=== PATIENT | female | born 1960 | race Caucasian/White ===

== ENCOUNTER → 2016-06-01 | Outpatient (REF) | payer OTHER ==
[2016-06-01 12:07] LABS: ALBUMIN 3.8 GM/DL (3.2-5.2); ALBUMIN/GLOBULIN RATIO 1.41 (1.00-1.93); ALKALINE PHOSPHATASE 73 U/L (45-117); ALT/SGPT 48 U/L (12-78); ANION GAP 9 MEQ/L (8-16); AST/SGOT 27 U/L (15-37); BILIRUBIN,TOTAL 0.6 MG/DL (0.2-1.0); BLOOD UREA NITROGEN 17 MG/DL (7-18); CALCIUM LEVEL 8.7 MG/DL (8.5-10.1); CARBON DIOXIDE LEVEL 30 MEQ/L (21-32); CHLORIDE LEVEL 105 MEQ/L (98-107); CHOLESTEROL LEVEL 199 MG/DL (<200); CREATININE FOR GFR 0.72 MG/DL (0.55-1.02); GLOMERULAR FILTRATION RATE > 60.0 (>51); GLUCOSE, FASTING 95 MG/DL (70-105); POTASSIUM SERUM 3.9 MEQ/L (3.5-5.1); SODIUM LEVEL 144 MEQ/L (136-145); TOTAL PROTEIN 6.5 GM/DL (6.4-8.2); TRIGLYCERIDES LEVEL 75 MG/DL (<150)
== END ==
LOC: M SFHCCLAY 07:01
PROVIDERS: ATTEND Family Medicine
DX: E78.2 Mixed hyperlipidemia (principal)

== ENCOUNTER → 2016-06-27 | Day surgery (SDC) | payer OTHER ==
[~2016-06-27] VITALS: Ht 162.6 cm; Wt 67.1 kg
[~2016-06-27] MED LIST: ASTA1CAP PO; BACITRACIN PWD 50,000 UNITS VIAL As Ordered ONE; BACITRACIN PWD 50,000 UNITS VIAL IR ONE; BUPIVACAINE HCL 0.5% 30 ML VIAL As Ordered ONE; BUPIVACAINE HCL 0.5% 30 ML VIAL SC ONE; CALC600T7 PO; FEROCAP3 PO; HYDROmorphone HCL 1 MG/ML SYRINGE (J1170) IV PRN; LIDOCAINE 2% INJ 100 MG/5 ML SDV (FOR ANES.) As Ordered ONE; LIDOCAINE 2% MDV 20 ML VIAL As Ordered ONE; LIDOCAINE 2% MDV 20 ML VIAL SC ONE; LR 1,000 ML IV SCH; MIDAZOLAM INJ 2 MG/2 ML VIAL (J2250) As Ordered ONE; MULT1TAB15 PO; NEOSPORIN GU IRRIG 20 ML VIAL As Ordered ONE; NEOSPORIN GU IRRIG 20 ML VIAL IR ONE; ONDANSETRON 4MG/2ML VIAL (J2405) IV PRN; PERCOCET 5MG/325MG TAB PO PRN; PROPOFOL 200 MG/20 ML VIAL As Ordered ONE; VITA250L PO; [UNRECOGNIZED DRUG - OTHER] OR; ceFAZolin SOD 1 GM in D5W MINI-BAG PLUS 50 ML IV ONE; dexameTHASONE 4 MG/ML 1ML VIAL (J1100) As Ordered ONE; dexameTHASONE 4 MG/ML 1ML VIAL (J1100) XX ONE; fentaNYL 100 MCG/2 ML INJECTION (J3010) As Ordered ONE; fentaNYL 100 MCG/2 ML INJECTION (J3010) IV PRN
[2016-06-27 10:05] VITALS: BP 120/78
--- NOTE | 2016-06-27 10:19 | REP ---
Right foot series, three views: 06/27/2016. Clinical history: Postoperative first MTP fusion. Three views show multiple screws and a dorsal plate fixation for fusion of the first MTP joint. There are some degenerative changes at IP joints. Plantar and Achilles insertional spurs noted. Signed by Gaurav Mcgregor MD 06/27/2016 10:49 A
--- NOTE | 2016-06-27 14:02 | RO ---
DATE OF PROCEDURE: 06/27/2016 PREPROCEDURE DIAGNOSIS: Hallux limitus deformity right foot. POSTPROCEDURE DIAGNOSIS: Hallux limitus deformity right foot. PROCEDURE: Fusion first metatarsal phalangeal joint right foot. SURGEON: Matheus Etienne DPM NET C DEVELOPER: None. ANESTHESIA: Local, monitored anesthesia care (MAC). IRRIGATION: Dilute bacitracin, neomycin and polymyxin B solution. HEMOSTASIS: Ankle tourniquet at 225 mmHg for 71 minutes. HARDWARE UTILIZED: Rao Ortholoc MTP right sided 5 degrees angle plate with non-locking screws 3.5 x 16 and 18 and 20, and non-locking screws 2.7 x 18, 12 and 14, and a Dart-Fire 3.5 x 28 mm. DESCRIPTION OF PROCEDURE: On 06/27/2016, this 55-year-old white female was taken from her hospital room to the operating room and placed on the operating room table in a supine position. Following the induction of IV sedation, local and regional anesthesia, the right lower extremity was prepped and draped in the usual aseptic manner. The right lower extremity was elevated 45 degrees in a horizontal plane for the purpose of preoperative exsanguination of the limb. During this three minute time period, an ankle pneumatic tourniquet was applied just proximal to the medial and lateral malleolus over a well padded site. To further exsanguinate the limb, a Nick's Esmarch bandage was placed circumferentially extending from the digits to the distal edge of the ankle pneumatic tourniquet and the ankle pneumatic tourniquet was rapidly inflated to 225 mmHg for the purpose of intraoperative hemostasis. The Nick's Esmarch bandage was removed and the right lower extremity was returned to the operating table and sterile draping was completed and the following procedure was performed. FUSION FIRST METATARSAL PHALANGEAL JOINT RIGHT FOOT: Attention was directed to the patients right foot where a 7 cm incision was placed over the first metatarsal phalangeal joint medial to the extensor tendon. The incision was deepened through subcutaneous tissues and all coursing venous tributaries were identified, underscored, clamped, cut, ligated, and electrocoagulated as necessary. Spurring was noted over the dorsal aspect of the first metatarsal. The joint was opened and almost complete erosion of the articular cartilage was noted on the first metatarsal. Therefore, a fusion ws necessary. Utilizing a sagittal saw, an osteotomy was performed through the medial eminence and dorsal spur of the first metatarsal. The irregular surfaces of the first metatarsal phalangeal joint were also rongeured to a smooth fashion. Utilizing a cone shaped reamer, the first metatarsal and proximal phalanx were reamed to the subchondral plate and utilizing a 2 mm drill bit the joint was fenestrated. The wound was flushed with copious amounts of dilute bacitracin, neomycin and polymyxin B solution. Stab incision was made over the medial aspect of the hallux and a K-wire was then placed across the first metatarsal phalangeal joint and placed in several degrees of dorsiflexion and the toe held in an anatomic valgus position. C-arm imagery was utilized to verify placement and a 3.5 mm x 24 mm compression screw was placed across the first metatarsal phalangeal joint. A right sided MTP 5 degree angled plate was then held to the joint surfaces. This revealed good contour and the plate was then fixated in the standard fashion with first 2.7 mm screws across the proximal phalanx and this was utilizing the lag screw and the proximal aspect of the plate was lagged with a 3.5 non-locking screw. The additional 3.5 screws were then placed into the plate in a non-locking fashion. This provided a stable construct. Intraoperative C-arm imagery revealed good overall position and alignment of the hallux. The wound was flushed with copious amounts of dilute bacitracin, neomycin and polymyxin B solution. Attention was directed toward closure where the capsular structures were coapted and maintained utilizing #3-0 Vicryl in a simple interrupted type fashion. Subcutaneous tissues were coapted and maintained utilizing #4-0 Prolene in a simple interrupted type fashion. The skin incision was coapted and maintained utilizing #4-0 Prolene in a simple interrupted and horizontal mattress type fashion. Attention was directed towards bandaging where a sterile compressive bandage was applied consisting of Adaptic, 4x4s, 4x4 splints, Tonie, Kerlix and Coban. The ankle pneumatic tourniquet was rapidly deflated and instantaneous capillary filling time was noted in digits 1-5 of the patients right foot. The patient having apparently tolerated the surgical procedure well was taken from the OR to the recovery room with vital signs stable and the patient afebrile for further monitoring by the anesthesia department. All surgical specimens removed during the operative procedure were sent to pathology for gross and microscopic examination. Postoperative instructions will be given upon discharge.
== END | disposition home or self-care (01) ==
LOC: M SDC 06:02
PROVIDERS: ATTEND Podiatrist
DX: M20.5X1 Other deformities of toe(s) (acquired), right foot (principal); M20.22 Hallux rigidus, left foot; M20.21 Hallux rigidus, right foot; M72.2 Plantar fascial fibromatosis; G47.33 Obstructive sleep apnea (adult) (pediatric); G43.909 Migraine, unspecified, not intractable, without status migrainosus; T88.59XD Other complications of anesthesia, subsequent encounter; K21.9 Gastro-esophageal reflux disease without esophagitis; G89.29 Other chronic pain; M12.9 Arthropathy, unspecified; F32.9 Major depressive disorder, single episode, unspecified; F41.9 Anxiety disorder, unspecified; Z98.51 Tubal ligation status; Z98.84 Bariatric surgery status; Z88.1 Allergy status to other antibiotic agents; Z79.899 Other long term (current) drug therapy
CPT/HCPCS: 28750; 73630; 88300; C1776; J0690; J1100; J2250; J3010

== ENCOUNTER → 2017-01-16 | Outpatient (REF) | payer OTHER ==
[~2017-01-16] MED LIST changes: -ASTA1CAP PO; +ASTA4CAP PO; -BACITRACIN PWD 50,000 UNITS VIAL As Ordered ONE; -BACITRACIN PWD 50,000 UNITS VIAL IR ONE; -BUPIVACAINE HCL 0.5% 30 ML VIAL As Ordered ONE; -BUPIVACAINE HCL 0.5% 30 ML VIAL SC ONE; -HYDROmorphone HCL 1 MG/ML SYRINGE (J1170) IV PRN; -LIDOCAINE 2% INJ 100 MG/5 ML SDV (FOR ANES.) As Ordered ONE; -LIDOCAINE 2% MDV 20 ML VIAL As Ordered ONE; -LIDOCAINE 2% MDV 20 ML VIAL SC ONE; -LR 1,000 ML IV SCH; -MIDAZOLAM INJ 2 MG/2 ML VIAL (J2250) As Ordered ONE; -NEOSPORIN GU IRRIG 20 ML VIAL As Ordered ONE; -NEOSPORIN GU IRRIG 20 ML VIAL IR ONE; -ONDANSETRON 4MG/2ML VIAL (J2405) IV PRN; -PERCOCET 5MG/325MG TAB PO PRN; -PROPOFOL 200 MG/20 ML VIAL As Ordered ONE; -ceFAZolin SOD 1 GM in D5W MINI-BAG PLUS 50 ML IV ONE; -dexameTHASONE 4 MG/ML 1ML VIAL (J1100) As Ordered ONE; -dexameTHASONE 4 MG/ML 1ML VIAL (J1100) XX ONE; -fentaNYL 100 MCG/2 ML INJECTION (J3010) As Ordered ONE; -fentaNYL 100 MCG/2 ML INJECTION (J3010) IV PRN
== END ==
LOC: M SFHCCLAY 14:23
PROVIDERS: ATTEND Family Medicine
DX: R30.0 Dysuria (principal)

== ENCOUNTER → 2017-08-02 | Outpatient (CLI) | payer OTHER | LOC: M CLY 09:22 | DX: M79.671 Pain in right foot (principal) ==

== ENCOUNTER → 2018-07-23 | Outpatient (REF) | payer OTHER | LOC: M SFHCCLAY 11:37 | PROVIDERS: ATTEND Family Medicine | DX: Z12.4 Encounter for screening for malignant neoplasm of cervix (principal); N77.1 Vaginitis, vulvitis and vulvovaginitis in diseases classified elsewhere ==

== ENCOUNTER → 2018-09-01 | Outpatient (REF) | payer OTHER | LOC: M LAB REF 15:16 | PROVIDERS: ATTEND Nurse Practitioner Family | DX: L08.9 Local infection of the skin and subcutaneous tissue, unspecified (principal) ==

== ENCOUNTER 2018-09-26 09:16 | Day surgery (SDC) | payer OTHER ==
[~2018-09-26] VITALS: Ht 162.6 cm; Wt 80.3 kg
[~2018-09-26 09:16] MED LIST changes: +MAGN250T7 PO; +MAXA10TA14 PO; +MULTCAP PO; +NS 1,000 ML IV ONE; +SERT-141 PO; +VITA-157 PO; +VITA400T15 PO
[2018-09-26] MEDS ORDERED: LIDOCAINE 2% INJ 100 MG/5 ML SDV (FOR ANES.) As Ordered ONE (11:23)
[2018-09-26] MEDS ORDERED: PROPOFOL 200 MG/20 ML VIAL As Ordered ONE (11:23)
--- NOTE | 2018-09-26 11:34 | ROOR ---
Patient Name: Darline Rader Procedure Date: 09/26/2018 11:08 AM Date of : 1960 Age: 58 Room: [facility] Gender: Female Note Status: Finalized Procedure: Total Colonoscopy to Cecum Indications: High risk colon cancer surveillance: Personal history of colonic polyps, Last colonoscopy: 2011 Providers: Luciano Santa MD Referring MD: Vu Thomas MD Requesting Provider: Medicines: Monitored Anesthesia Care Complications: No immediate complications. Procedure: Pre-Anesthesia Assessment: - The heart rate, respiratory rate, oxygen saturations, blood pressure, adequacy of pulmonary ventilation, and response to care were monitored throughout the procedure. The Colonoscope was introduced through the anus and advanced to the cecum, identified by appendiceal orifice and ileocecal valve. The colonoscopy was performed without difficulty. The patient tolerated the procedure well. The quality of the bowel preparation was excellent. Findings: The perianal and digital rectal examinations were normal. Non-bleeding internal hemorrhoids were found during retroflexion. The hemorrhoids were small and Grade I (internal hemorrhoids that do not prolapse). Scattered small-mouthed diverticula were found in the recto-sigmoid colon, sigmoid colon and descending colon. The exam was otherwise without abnormality on direct and retroflexion views. Impression: - Non-bleeding internal hemorrhoids. - Diverticulosis in the recto-sigmoid colon, in the sigmoid colon and in the descending colon. - The examination was otherwise normal on direct and retroflexion views. - No specimens collected. - The exam was otherwise normal to the cecum. Recommendation: - Patient has a contact number available for emergencies. The signs and symptoms of potential delayed complications were discussed with the patient. Return to normal activities tomorrow. Written discharge instructions were provided to the patient. - High fiber diet. - Discharge patient to home. - Continue present medications. - Repeat colonoscopy in 5 years for surveillance. - Return to referring physician. - The findings and recommendations were discussed with the patient's family. Luciano Santa MD Luciano Santa MD 09/26/2018 11:34:25 AM Electronically signed by Luciano Santa MD Number of Addenda: 0 Note Initiated On: 09/26/2018 11:08 AM Estimated Blood Loss: Estimated blood loss: none.
[2018-09-26 11:50] VITALS: BP 124/82
== END 2018-09-26 12:04 | disposition home or self-care (01) ==
LOC: M OPP 09:16
PROVIDERS: ATTEND Internal Medicine Gastroenterology
DX: K64.0 First degree hemorrhoids (principal); K57.30 Diverticulosis of large intestine without perforation or abscess without bleeding; Z86.010 Personal history of colon polyps

== ENCOUNTER → 2018-11-19 | Outpatient (REF) | payer OTHER ==
[~2018-11-19] MED LIST changes: -NS 1,000 ML IV ONE
== END ==
LOC: M SFHCCLAY 07:10
PROVIDERS: ATTEND Nurse Practitioner Family
DX: J02.9 Acute pharyngitis, unspecified (principal)

== ENCOUNTER → 2019-09-29 | Outpatient (REF) | payer OTHER | LOC: M LAB REF 18:18 | PROVIDERS: ATTEND Dermatology | DX: C44.311 Basal cell carcinoma of skin of nose (principal); L72.0 Epidermal cyst ==

== ENCOUNTER → 2019-10-29 | Outpatient (REF) | payer OTHER | LOC: M LAB REF 10:29 | PROVIDERS: ATTEND Dermatology | DX: C44.301 Unspecified malignant neoplasm of skin of nose (principal) ==

== ENCOUNTER → 2019-11-16 | Outpatient (REF) | payer OTHER | LOC: M SFHCCLAY 10:03 | PROVIDERS: ATTEND Physician Assistant | DX: R30.0 Dysuria (principal) ==

== ENCOUNTER → 2020-02-02 | Outpatient (REF) | payer OTHER ==
[~2020-02-02] MED LIST changes: +CALC-212 PO; -CALC600T7 PO
== END ==
LOC: M LAB REF 10:00
PROVIDERS: ATTEND Dermatology
DX: B35.9 Dermatophytosis, unspecified (principal)

== ENCOUNTER → 2021-05-16 | Outpatient (REF) | payer OTHER ==
[~2021-05-16] MED LIST changes: -VITA-157 PO; +VITAE40CA PO
[2021-05-16 11:45] LABS: HEMATOCRIT 43.4 % (36.0-47.0); HEMOGLOBIN 14.1 g/dl (12.0-15.5); MEAN CORPUSCULAR HEMOGLOBIN 29.1 pg (27.0-33.0); MEAN CORPUSCULAR HGB CONC 32.5 g/dl (32.0-36.5); MEAN CORPUSCULAR VOLUME 89.7 fl (80.0-96.0); PLATELET COUNT, AUTOMATED 246 10^3/uL (150-450); RED BLOOD COUNT 4.84 10^6/uL (4.00-5.40); WHITE BLOOD COUNT 4.7 10^3/uL (4.0-10.0)
[2021-05-16 12:08] LABS: HEMOGLOBIN A1c 5.4 %
[2021-05-16 12:45] LABS: ALBUMIN 3.7 GM/DL (3.2-5.2); ALT/SGPT 27 U/L (12-78); BILIRUBIN,TOTAL 0.5 MG/DL (0.2-1.0); BLOOD UREA NITROGEN 20 MG/DL (7-18); CALCIUM LEVEL 8.9 MG/DL (8.8-10.2); CARBON DIOXIDE LEVEL 30 MEQ/L (21-32); CHLORIDE LEVEL 107 MEQ/L (98-107); CHOLESTEROL LEVEL 219 MG/DL (<200); CREATININE FOR GFR 0.63 MG/DL (0.55-1.30); FOLATE 19.3 NG/ML (>5.4); FREE T4 1.14 NG/DL (0.76-1.46); GLOMERULAR FILTRATION RATE > 60.0 (>45); GLUCOSE, FASTING 108 MG/DL (70-100); HDL CHOLESTEROL 60 MG/DL (>40); IRON (FE) 97 UG/DL (50-170); LDL CHOLESTEROL 145 MG/DL (<100); NON-HDL-C 159 MG/DL; PERCENT SATURATION 31.4 % (13.2-45.0); POTASSIUM SERUM 4.6 MEQ/L (3.5-5.1); PTH INTACT 87.5 PG/ML (18.5-88.0); SODIUM LEVEL 141 MEQ/L (136-145); TOTAL IRON BINDING CAPACITY 309 UG/DL (250-450); TOTAL PROTEIN 6.5 GM/DL (6.4-8.2); TRIGLYCERIDES LEVEL 70 MG/DL (<150); VITAMIN B12 LEVEL 343 PG/ML (247-911)
== END ==
LOC: M SFHCCLAY 07:09
PROVIDERS: ATTEND Family Medicine
DX: F41.1 Generalized anxiety disorder (principal); E88.81 Metabolic syndrome and other insulin resistance; K21.9 Gastro-esophageal reflux disease without esophagitis; K57.30 Diverticulosis of large intestine without perforation or abscess without bleeding; Z98.84 Bariatric surgery status

== ENCOUNTER → 2021-05-22 | Outpatient (REF) | payer OTHER | LOC: M LAB REF 08:30 | PROVIDERS: ATTEND Physician Assistant | DX: D48.9 Neoplasm of uncertain behavior, unspecified (principal) ==

== ENCOUNTER → 2021-05-23 | Outpatient (REF) | payer OTHER ==
[2021-05-23 17:19] LABS: GC DNA AMPLIFICATION NEGATIVE (NEGATIVE)
== END ==
LOC: M SFHCCLAY 11:19
PROVIDERS: ATTEND Family Medicine
DX: R30.0 Dysuria (principal); Z12.4 Encounter for screening for malignant neoplasm of cervix

== ENCOUNTER → 2022-05-22 | Outpatient (REF) | payer OTHER ==
[~2022-05-22] MED LIST changes: -MAXA10TA14 PO; +RIZA10TA64 PO
[2022-05-22 12:01] LABS: BASO % 0.6 % (0.0-1.0); EOS # 0.1 10^3/uL (0.0-0.5); EOS % 2.6 % (0.0-3.0); HEMATOCRIT 43.2 % (36.0-47.0); LYMPH # 2.5 10^3/uL (1.5-5.0); LYMPH % 48.3 % (24.0-44.0); MEAN CORPUSCULAR HEMOGLOBIN 29.4 pg (27.0-33.0); MEAN CORPUSCULAR HGB CONC 32.4 g/dl (32.0-36.5); MEAN CORPUSCULAR VOLUME 90.6 fl (80.0-96.0); MONO # 0.4 10^3/uL (0.0-0.8); MONO % 7.1 % (2.0-8.0); NEUTROPHILS # 2.1 10^3/uL (1.5-8.5); NEUTROPHILS % 41.2 % (36.0-66.0); PLATELET COUNT, AUTOMATED 220 10^3/uL (150-450); RED BLOOD COUNT 4.77 10^6/uL (4.00-5.40); WHITE BLOOD COUNT 5.1 10^3/uL (4.0-10.0)
[2022-05-22 12:31] LABS: IRON (FE) 98 UG/DL (50-170); PERCENT SATURATION 31.1 % (13.2-45.0); TOTAL IRON BINDING CAPACITY 315 UG/DL (250-425)
[2022-05-22 12:38] LABS: FERRITIN 72.1 NG/ML (7.3-270.7)
[2022-05-22 12:39] LABS: FOLATE > 24.0 NG/ML (>5.4); VITAMIN B12 LEVEL 598 PG/ML (211-911)
[2022-05-22 14:27] LABS: PTH INTACT 90.5 PG/ML (18.5-88.0)
== END ==
LOC: M LABDRAWC 11:39
DX: D64.9 Anemia, unspecified (principal)

== ENCOUNTER → 2023-03-26 | Outpatient (CLI) | payer OTHER | LOC: M SOG 07:57 | PROVIDERS: ATTEND Physician Assistant | DX: S62.521A Displaced fracture of distal phalanx of right thumb, initial encounter for closed fracture (principal); W18.30XA Fall on same level, unspecified, initial encounter; Y92.009 Unspecified place in unspecified non-institutional (private) residence as the place of occurrence of the external cause ==

== ENCOUNTER → 2023-08-01 | Outpatient (REF) | payer OTHER ==
[2023-08-01 13:47] LABS: HEMATOCRIT 43.2 % (36.0-47.0); HEMOGLOBIN 14.2 g/dl (12.0-15.5); MEAN CORPUSCULAR HEMOGLOBIN 29.9 pg (27.0-33.0); MEAN CORPUSCULAR HGB CONC 32.9 g/dl (32.0-36.5); MEAN CORPUSCULAR VOLUME 90.9 fl (80.0-96.0); PLATELET COUNT, AUTOMATED 220 10^3/uL (150-450); RED BLOOD COUNT 4.75 10^6/uL (4.00-5.40); WHITE BLOOD COUNT 4.3 10^3/uL (4.0-10.0)
[2023-08-01 13:49] LABS: C REACTIVE PROTEIN QUANTITATIV < 0.40 MG/DL (<1.0)
[2023-08-01 13:51] LABS: ALBUMIN 3.8 G/DL (3.2-5.2); ALKALINE PHOSPHATASE 106 U/L (46-116); ALT/SGPT 27 U/L (7.0-40); AST/SGOT 16 U/L (<34); BILIRUBIN,TOTAL 0.5 MG/DL (0.3-1.2); BLOOD UREA NITROGEN 15 MG/DL (9-23); CALCIUM LEVEL 8.7 MG/DL (8.3-10.6); CARBON DIOXIDE LEVEL 30 MMOL/L (20-31); CHLORIDE LEVEL 105 MMOL/L (98-107); CHOLESTEROL LEVEL 220 MG/DL (<200); CHOLESTEROL RISK RATIO 3.33 (<5); GLOMERULAR FILTRATION RATE > 60.0 (>45); GLUCOSE, FASTING 103 MG/DL (74-106); LDL CHOLESTEROL 134.6 MG/DL (<100); MAGNESIUM LEVEL 2.2 MG/DL (1.8-2.4); POTASSIUM SERUM 4.2 MMOL/L (3.5-5.1); SODIUM LEVEL 139 MMOL/L (136-145); TOTAL PROTEIN 6.5 G/DL (5.7-8.2); TRIGLYCERIDES LEVEL 97 MG/DL (<150)
== END ==
LOC: M SFHCCLAY 08:15
PROVIDERS: ATTEND Family Medicine
DX: E78.2 Mixed hyperlipidemia (principal); N25.81 Secondary hyperparathyroidism of renal origin

== ENCOUNTER → 2023-10-09 | Outpatient (CLI) | payer OTHER | LOC: M SOG 07:57 | PROVIDERS: ATTEND Physician Assistant | DX: S62.521A Displaced fracture of distal phalanx of right thumb, initial encounter for closed fracture (principal); W18.30XA Fall on same level, unspecified, initial encounter; Y92.009 Unspecified place in unspecified non-institutional (private) residence as the place of occurrence of the external cause ==

== ENCOUNTER → 2023-11-18 | Outpatient (CLI) | payer OTHER | LOC: M SOG 07:57 | PROVIDERS: ATTEND Physician Assistant | DX: M25.552 Pain in left hip (principal) ==

== ENCOUNTER → 2023-12-03 | Outpatient (REF) | payer OTHER ==
[2023-12-03 11:42] LABS: BASO % 0.9 % (0.0-1.0); EOS # 0.2 10^3/uL (0.0-0.5); EOS % 3.4 % (0.0-3.0); HEMATOCRIT 44.1 % (36.0-47.0); HEMOGLOBIN 14.3 g/dl (12.0-15.5); LYMPH # 1.6 10^3/uL (1.5-5.0); LYMPH % 33.8 % (24.0-44.0); MEAN CORPUSCULAR HEMOGLOBIN 29.9 pg (27.0-33.0); MEAN CORPUSCULAR HGB CONC 32.4 g/dl (32.0-36.5); MEAN CORPUSCULAR VOLUME 92.3 fl (80.0-96.0); MONO # 0.3 10^3/uL (0.0-0.8); MONO % 6.8 % (2.0-8.0); NEUTROPHILS # 2.6 10^3/uL (1.5-8.5); NEUTROPHILS % 54.9 % (36.0-66.0); PLATELET COUNT, AUTOMATED 243 10^3/uL (150-450); RED BLOOD COUNT 4.78 10^6/uL (4.00-5.40); WHITE BLOOD COUNT 4.7 10^3/uL (4.0-10.0)
[2023-12-03 12:03] LABS: BLOOD UREA NITROGEN 21 MG/DL (9-23); CALCIUM LEVEL 9.3 MG/DL (8.3-10.6); CARBON DIOXIDE LEVEL 31 MMOL/L (20-31); CHLORIDE LEVEL 107 MMOL/L (98-107); CREATININE FOR GFR 0.64 MG/DL (0.55-1.30); GLOMERULAR FILTRATION RATE > 60.0 (>45); GLUCOSE, FASTING 99 MG/DL (74-106); POTASSIUM SERUM 4.7 MMOL/L (3.5-5.1); SODIUM LEVEL 142 MMOL/L (136-145)
[2023-12-03 13:15] LABS: PTH INTACT 53.1 PG/ML (18.5-88.0)
[2023-12-04 21:18] LABS: IgG P18 AB NON-REACTIVE; IgG P23 AB NON-REACTIVE; IgG P28 AB NON-REACTIVE; IgG P30 AB NON-REACTIVE; IgG P39 AB NON-REACTIVE; IgG P41 AB NON-REACTIVE; IgG P45 AB NON-REACTIVE; IgG P58 AB REACTIVE; IgG P66 AB NON-REACTIVE; IgG P93 AB NON-REACTIVE; IgM P23 AB NON-REACTIVE; IgM P39 AB NON-REACTIVE; IgM P41 AB NON-REACTIVE; LYME IgG WB INTERPRETATION NEGATIVE (NEGATIVE); LYME IgM WB INTERPRETATION NEGATIVE (NEGATIVE)
== END ==
LOC: M SFHCCLAY 08:42
PROVIDERS: ATTEND Family Medicine
DX: Z98.84 Bariatric surgery status (principal); N25.81 Secondary hyperparathyroidism of renal origin; R21 Rash and other nonspecific skin eruption

== ENCOUNTER → 2025-01-12 | Outpatient (REF) | payer OTHER ==
[2025-01-14 15:47] LABS: HPV APTIMA Not Detected (Not Detected)
== END ==
LOC: M SFHCCLAY 13:32
PROVIDERS: ATTEND Physician Assistant
DX: Z12.4 Encounter for screening for malignant neoplasm of cervix (principal)
CPT/HCPCS: 87624; G0123

== ENCOUNTER 2025-02-03 08:47 | Day surgery (SDC) | payer OTHER ==
[~2025-02-03] VITALS: Ht 157.5 cm; Wt 95.6 kg
[~2025-02-03 08:47] MED LIST changes: +CETI10CH PO; +K2 P1TAB PO; +THERTAB52 PO; +TRICCAP PO; +VITA100093 PO
[2025-02-03] MEDS ORDERED: LIDOCAINE 2% 100 MG/5 ML SDV (FOR ANES.) As Ordered ONE (10:02)
[2025-02-03 10:38] VITALS: TEMP 97.1
[2025-02-03 10:59] VITALS: BP 134/78; O2SAT 94
== END 2025-02-03 11:01 | disposition home or self-care (01) ==
LOC: M OPP 08:47
PROVIDERS: ATTEND Internal Medicine Gastroenterology
DX: K64.0 First degree hemorrhoids (principal); K57.30 Diverticulosis of large intestine without perforation or abscess without bleeding; Z86.0100 Personal history of colon polyps, unspecified; G47.30 Sleep apnea, unspecified; Z88.1 Allergy status to other antibiotic agents; Z91.048 Other nonmedicinal substance allergy status; Z79.899 Other long term (current) drug therapy; Z98.84 Bariatric surgery status; F17.200 Nicotine dependence, unspecified, uncomplicated

== ENCOUNTER → 2025-02-05 | Outpatient (REF) | payer OTHER ==
[2025-02-05 13:22] LABS: VITAMIN B12 LEVEL 659 PG/ML (211-911)
[2025-02-05 13:23] LABS: IRON (FE) 92 UG/DL (50-170)
[2025-02-05 13:24] LABS: ALT/SGPT 31 U/L (7.0-40); AST/SGOT 25 U/L (<34); CALCIUM LEVEL 9.1 MG/DL (8.3-10.6); CARBON DIOXIDE LEVEL 26 MMOL/L (20-31); CHLORIDE LEVEL 107 MMOL/L (98-107); CHOLESTEROL LEVEL 221 MG/DL (<200); CHOLESTEROL RISK RATIO 3.86 (<5); CREATININE FOR GFR 0.60 MG/DL (0.55-1.30); GLOMERULAR FILTRATION RATE > 90.0 (>45); LDL CHOLESTEROL 141.0 MG/DL (<100); MAGNESIUM LEVEL 2.1 MG/DL (1.8-2.4); NON-HDL-C 163.8 MG/DL; PERCENT SATURATION 31.0 % (13.2-45.0); POTASSIUM SERUM 4.2 MMOL/L (3.5-5.1); SODIUM LEVEL 142 MMOL/L (136-145); TRIGLYCERIDES LEVEL 114 MG/DL (<150)
[2025-02-05 13:27] LABS: FREE T4 1.34 NG/DL (0.89-1.76)
[2025-02-05 13:56] LABS: PTH INTACT 73.7 PG/ML (18.5-88.0)
[2025-02-05 14:01] LABS: ESTIMATED AVERAGE GLUCOSE 111.0 MG/DL (60-110)
== END ==
LOC: M SFHCCLAY 08:16
PROVIDERS: ATTEND Physician Assistant
DX: E78.2 Mixed hyperlipidemia (principal); K21.9 Gastro-esophageal reflux disease without esophagitis; F41.1 Generalized anxiety disorder; N95.2 Postmenopausal atrophic vaginitis; Z98.84 Bariatric surgery status; B35.1 Tinea unguium; L40.9 Psoriasis, unspecified; L30.9 Dermatitis, unspecified; Z12.11 Encounter for screening for malignant neoplasm of colon; S80.861A Insect bite (nonvenomous), right lower leg, initial encounter